=== PATIENT | female | born 2000 | race Hispanic/Latino ===

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

== ENCOUNTER 2019-04-30 12:32 | Emergency (ER) | payer MEDICAID, SELFPAY ==
[2019-04-30 13:47] VITALS: BP 121/73
--- NOTE | 2019-04-30 13:48 | Emergency Department Report ---
Blank Doc - Documentation Documentation: 18 Y/O FEMALE SMOKER AND DRUG USER PRESENTS C/O OF WHICH WAS DISCOVE RED ON Mar. NOW REPORTS SEVERE RIGHT FLANK PAIN WITHOUT BLEEDING OR FEVER. (CONTINUES TO SMOKE) The patient was seen in triage for _ Labs/imaging ordered to evaluate for a cause of this complaint. Vital signs reviewed, patient awake and alert in NAD.
[2019-04-30 14:34] LABS: Basophils % (Auto) 0.3 % (0.0-1.8); Eosinophils # (Auto) 0.1 K/mm3 (0.0-0.4); Eosinophils % (Auto) 1.3 % (0.0-4.3); Hematocrit 31.5 % (30.3-42.9); Hemoglobin 10.5 gm/dl (10.1-14.3); Lymphocytes # (Auto) 2.6 K/mm3 (1.2-5.4); Lymphocytes % (Auto) 27.1 % (13.4-35.0); Mean Corpuscular HGB Conc 33 % (30-34); Mean Corpuscular Volume 79 fl (79-97); Monocytes # (Auto) 0.5 K/mm3 (0.0-0.8); Platelet Count 370 K/mm3 (140-440); Red Blood Count 3.99 M/mm3 (3.65-5.03); Red Cell Distribution Width 16.5 % (13.2-15.2)
[2019-04-30 15:05] LABS: Bacteria,Urine 2+ /HPF (Negative); Bilirubin,Urine NEG (Negative); Blood,Urine SM (Negative); Color,Urine Yellow (Yellow); Protein,Urine <15 mg/dL mg/dL (Negative); Urobilinogen,Urine < 2.0 mg/dL (<2.0)
--- NOTE | 2019-04-30 15:50 | Ultrasound Report ---
OB ULTRASOUND >= 14 WEEKS FETUS INDICATION: Vaginal bleeding COMPARISON: None FINDINGS: A single gestation intrauterine is present with variable presentation. The placenta is post erior, grade 0 and free of the cervical os. heart tones measure 158 bpm. The cervix measures 4 .1 cm. Qualitative amniotic fluid volume is normal. SYLVESTER was not measured. The intracranial structures, spine, four-chamber heart, diaphragm, umbilical cord, cord inserti on, stomach, kidneys, and bladder show no sonographic abnormality. Biparietal diameter is 4.3 cm which equals 19 weeks 0 days. Head circumference is 15.7 cm which equals 18 weeks 4 days. Abdominal circumference is 13.3 cm which equals 18 weeks 5 days. Femur length is 2.6 cm which equals 18 weeks 0 days. Overall estimated sonographic age is 18 weeks 4 days. EDC: 09/27/2019. HC/AC ratio: 1.2 Cephalic index: 83.2 Estimated weight: 240 g IMPRESSION: Viable single intrauterine as described. No acute abnormality is detected. Signer Name: Antwon Arce Jr, MD Signed: 04/30/2019 3:46 PM Workstation Name: [id number]
== END 2019-04-30 16:37 | disposition left against medical advice (07) ==
LOC: ED 12:32
DX: M54.5 Low back pain (principal); Z53.21 Procedure and treatment not carried out due to patient leaving prior to being seen by health care provider
CPT/HCPCS: 36415; 76805; 81001; 84702; 85025; 86900; 86901; 87086